=== PATIENT | female | born 1990 | race Caucasian/White ===

== ENCOUNTER 2020-03-19 17:26 | Outpatient (CLI) | payer BC, SELFPAY ==
--- NOTE | ~2020-03-19 | XR_ITS ---
EXAMINATION: XR chest 2V EXAM DATE: 03/19/2020 17:59 INDICATION: Fever of unknown origin. TECHNIQUE: Frontal and lateral projections of the chest obtained and reviewed. There is no prior bobby dy for comparison. FINDINGS: The lungs are clear. There are no pleural effusions. The cardiomediastinal silhouette is within normal limits. There is no pneumothorax suspected. The bones and soft tissues are unremarkab le. There is no significant interval change. IMPRESSION: Normal chest x-ray exam. Reviewed, dictated and finalized at location A. IMPRESSION: Normal chest x-ray exam.
== END 2020-03-19 17:27 | disposition home or self-care (01) ==
PROVIDERS: PCP Physician Assistant; Visit Provider Physician Assistant
DX: R50.9 Fever, unspecified (principal)
CPT/HCPCS: 71046

== ENCOUNTER 2020-03-20 16:44 | Outpatient (CLI) | payer BC, SELFPAY ==
[2020-03-24 14:31] LABS: EBV Nuclear Ab Interpretation Past; EBV Virus Capsid Ag IgG Ab >750.00 U/mL (<18.00); EBV Virus Capsid Ag IgM Ab <36.00 U/mL (<36.00)
== END 2020-03-20 16:45 | disposition home or self-care (01) ==
PROVIDERS: PCP Physician Assistant; Visit Provider Physician Assistant
DX: R50.9 Fever, unspecified (principal)
CPT/HCPCS: 36415; 86664; 86665

== ENCOUNTER 2020-03-25 16:35 | Outpatient (CLI) | payer BC, SELFPAY ==
[2020-03-25 17:45] LABS: Basophils Percent Auto 0.3 % (0.2-1.2); Eosinophils Absolute Auto 0.4 K/mm3 (0-0.3); Eosinophils Percent Auto 4.8 % (0-4.4); Hematocrit 45.3 % (37.0-47.0); Hemoglobin 15.5 g/dL (12.0-15.0); Immature Granulocyte Absolute 0.03 K/mm3 (0.00-0.031); Immature Granulocyte Percent A 0.3 % (0-0.5); Lymphocytes Absolute Auto 2.71 K/mm3 (0.9-3.2); Lymphocytes Percent Auto 29.3 % (18.3-44.2); Mean Corpuscular HGB Conc 34.2 g/dl (32-36); Mean Corpuscular Hemoglobin 31.5 pg (26-34); Mean Corpuscular Volume 92.1 fl (80-100); Mean Platelet Volume 11.9 fl (7.4-10.4); Monocytes Absolute Auto 0.8 K/mm3 (0.1-0.6); Monocytes Percent Auto 8.9 % (2.6-8.5); Neutrophils Absolute Auto 5.2 K/mm3 (1.3-6.7); Neutrophils Percent Auto 56.4 % (45.5-73.1); Platelet Count Result 214 k/mm3 (150-375); Red Blood Count 4.92 M/mm3 (4.2-5.4); Red Cell Distribution Width 11.6 % (11.5-14.5); White Blood Count 9.2 K/mm3 (4.5-10.0)
[2020-03-25 17:49] LABS: Add Urine Microscopic? YES; Appearance Urine Cloudy (Clear); Bacteria Urine 1+ /hpf; Bilirubin Urine Negative (Negative); Blood Urine Negative (Negative); Color Urine Yellow (Yellow); Glucose Urine UA Negative (Negative); Ketones Urine Negative (Negative); Leukocyte Esterase Ur 2+ LEU/UL (Negative); Mucus Urine Few /lpf; Nitrate Urine Negative (Negative); Protein Urine Negative (Negative); Specific Grav Ur 1.026 (1.001-1.035); Squamous Epithelial Cell Urine Many /hpf (Few); Urobilinogen Urine Negative mg/dL (<2.0)
[2020-03-25 17:57] LABS: Alanine Aminotransferase 86 U/L (4-35); Albumin Level 4.4 g/dL (3.5-5.1); Alkaline Phosphatase 94 U/L (38-126); Anion Gap 10 mmol/L (8-16); Aspartate Amino Transferase 53 U/L (14-36); Bilirubin,Total 0.5 mg/dL (0.2-1.3); Blood Urea Nitrogen 10 mg/dL (7-17); Calcium 9.8 mg/dL (8.4-10.2); Carbon Dioxide 24 mmol/L (22-30); Chloride 106 mmol/L (98-107); Estimated Glomerular Filt Rate > 60; Glucose 86 mg/dL (65-105); Potassium 3.7 mmol/L (3.4-5.0); Sodium 140 mmol/L (137-145)
[2020-03-25 18:19] LABS: Erythrocyte Sedimentation Rate 14 mm/hr (0-20)
[2020-03-28 15:40] LABS: CMV IgG Antibody <0.60 U/mL (<0.60)
[2020-03-30 19:39] LABS: CMV IgM Antibody <30.00 AU/mL (<30.00)
== END 2020-03-25 16:36 | disposition home or self-care (01) ==
LOC: ANHLAB 16:36
PROVIDERS: PCP Physician Assistant; Visit Provider Physician Assistant
DX: R50.9 Fever, unspecified (principal)
CPT/HCPCS: 36415; 80053; 81001; 85025; 85652; 86038; 86039; 86644; 86645; 86769; 87040

== ENCOUNTER 2021-11-14 01:30 | Day surgery (SDC) | payer BC, SELFPAY ==
[2021-10-27 14:27] VITALS: BMI 38.7
--- NOTE | 2021-11-13 14:25 | PM.HPGS ---
History of Present Illness History of Present Illness Consent: Risks, benefits, and alternatives have been discussed and questions answered. Patient agrees to proceed with procedure. Chief complaint: dysphagia Narrative: Karolyn Hayes Geri is a 31 year old female referred because of difficulty with swallowing. Review of Systems Review of Systems: All systems reviewed & are unremarkable except as noted in HPI and below [facility] Social History Social History Smoking status: Never smoker Alcohol intake: never Substance use: current Substance use type: marijuana Other substance usage details: daily marijuana use Living arrangements: with family Spiritual care concerns: No Meds Home Medications and Allergies Home Medications Medication Instructions Recorded Confirmed Type famotidine 20 mg tablet 20 mg PO BID 10/27/21 10/27/21 History fluoxetine 10 mg capsule 10 mg PO DAILY 10/27/21 10/27/21 History levothyroxine 88 mcg tablet 88 mcg PO DAILY 10/27/21 10/27/21 History lurasidone 60 mg tablet (Latuda) 60 mg PO DAILY 10/27/21 10/27/21 History lorazepam 1 mg tablet (Ativan) 1 mg PO DAILY PRN Anxiety 11/14/21 11/14/21 History Allergies Allergy/AdvReac Type Severity Reaction Status Date / Time No Known Allergies Allergy Verified 11/14/21 11:11 Exam Const: General: alert Orientation/consciousness: patient oriented x3 Resp: Auscultation: clear to auscultation bilaterally Cardio: Rhythm: regular rhythm GI: GI Palp: Yes Soft to palpation and No Tenderness to palpation present (GI) Neuro: General: patient oriented x3 Assessment and Plan Assessment and plan (1) Dysphagia: Code(s): R13.10 - Dysphagia, unspecified Status: Acute Assessment and Plan: EGD with possible biopsy or dilatation or cautery.
[2021-11-14] MEDS: LACTATED RINGERS 1,000 ML 150 ML IV CONT (11:21)
[2021-11-14 11:22] VITALS: BP 112/50; PULSE 73; RESP 73; TEMP 37; O2SAT 100; BMI 39.0
--- NOTE | 2021-11-14 11:44 | P.PNAN_ITS ---
Anes - Initial Pre Proc Eval Procedure: Operation Date: 11/14/21 12:30 Proposed Procedures p Esophagogastroduodenoscopy - Jose Luis Montelongo MD Date/Time: 11/14/21 11:44 Surgeon: Jose Luis Montelongo MD Pre Op Diagnosis: dysphagia Patient Data Age: 31 Gender: F Height: 1.78 m Weight: 123.4 kg Last Vital Signs Temp 98.6 F 11/14/21 11:22 Pulse 73 11/14/21 11:22 Resp 73 H 11/14/21 11:22 BP 112/50 L 11/14/21 11:22 Pulse Ox 100 11/14/21 11:22 O2 Del Method Room Air 11/14/21 11:22 Allergies Allergy/AdvReac Type Severity Reaction Status Date / Time No Known Allergies Allergy Verified 11/14/21 11:11 Home Medications Medication Instructions Recorded Confirmed Type famotidine 20 mg tablet 20 mg PO BID 10/27/21 10/27/21 History fluoxetine 10 mg capsule 10 mg PO DAILY 10/27/21 10/27/21 History levothyroxine 88 mcg tablet 88 mcg PO DAILY 10/27/21 10/27/21 History lurasidone 60 mg tablet (Latuda) 60 mg PO DAILY 10/27/21 10/27/21 History lorazepam 1 mg tablet (Ativan) 1 mg PO DAILY PRN Anxiety 11/14/21 11/14/21 History Patient hx anesthesia problems: none Family hx anesthesia problems: none Results Review: All pre-operative results and documents have been reviewed as part of the pre- operative evaluation. [facility] Social History Social History Smoking status: Never smoker Alcohol intake: never Substance use: current Substance use type: marijuana Other substance usage details: daily marijuana use Living arrangements: with family Spiritual care concerns: No Anes - Eval Final PreProcedure Day of Procedure 11/14/21 11:44 Patient weight: morbidly obese Heart: regular rate and rhythm Lungs: clear to auscultation Airway: Mallampati scale class II Neurological: alert and oriented Last oral intake: >/= 8 hours ASA classification: III Emergent: no Anesthetic plan: proceed Anesthesia type and monitoring: general GIVS and standard monitoring Results Review: All pre-operative results and documents have been reviewed as part of the pre- operative evaluation. Informed Consent: The patient's anesthetic plan and its attendant risks and benefits were discussed with the patient/family/POA. Questions were solicited and answers provided to the satisfaction of the patient/family/POA.
[2021-11-14 12:34] VITALS: BP 144/91; PULSE 71; RESP 16; O2SAT 100
[2021-11-14 12:44] VITALS: BP 137/94; PULSE 71; RESP 13; O2SAT 100
[2021-11-14 12:54] VITALS: BP 130/99; PULSE 66; RESP 15; O2SAT 99
== END 2021-11-14 13:10 | disposition home or self-care (01) ==
PROVIDERS: PCP Physician Assistant; Visit Provider Internal Medicine Gastroenterology
PROC: 0DJ08ZZ Inspection of Upper Intestinal Tract, Via Natural or Artificial Opening Endoscopic (ICD-10-PCS; CPT 43235; principal; 2021-11-14 12:30)
DX: K22.2 Esophageal obstruction (principal); K21.9 Gastro-esophageal reflux disease without esophagitis; K44.9 Diaphragmatic hernia without obstruction or gangrene; E66.01 Morbid (severe) obesity due to excess calories; Z68.39 Body mass index [BMI] 39.0-39.9, adult; F12.90 Cannabis use, unspecified, uncomplicated
CPT/HCPCS: 43249; 88305; C1726; J2001; J2704; J7120

== ENCOUNTER 2022-05-27 19:23 | Emergency (ER) | payer BC, SELFPAY ==
[2022-05-27 19:28] VITALS: BP 144/74; PULSE 94; RESP 16; TEMP 37.1; O2SAT 99
--- NOTE | 2022-05-27 19:32 | ED.URI ---
HPI - URI/Sore Throat General Chief Complaint: Upper Respiratory Infection Stated Complaint: uri Time Seen by Provider: 05/27/22 19:32 Source: patient Mode of arrival: ambulatory Limitations: no limitations History of Present Illness HPI Narrative: Karolyn is a 31-year-old female patient presenting to the clinic today with a 1 day history of vomiting and fever. She reports her temperature was a 102? degrees F today. Took some Tylenol 45 minutes ago and now her temperature is 37.1? C she reports that she contacted her surgeon as she has recently had IVF (harvesting egg) surgery six days ago and they recommend she be evaluated to check for a bladder infection. She is also requesting COVID and influenza testing in the clinic today. states the IVF harvesting is where they took a needle through her vagina into her cervix and harvest the eggs from the cervix. Patient reports that she has should be starting her menses tomorrow. MD elicited complaint: fever, nasal congestion and other ( Vomiting) Related Data Home Medications Medication Instructions Recorded Confirmed famotidine 20 mg tablet 20 mg PO BID 10/27/21 10/27/21 fluoxetine 10 mg capsule 10 mg PO DAILY 10/27/21 10/27/21 levothyroxine 88 mcg tablet 88 mcg PO DAILY 10/27/21 10/27/21 lurasidone 60 mg tablet (Latuda) 60 mg PO DAILY 10/27/21 10/27/21 lorazepam 1 mg tablet (Ativan) 1 mg PO DAILY PRN Anxiety 11/14/21 11/14/21 Allergies Allergy/AdvReac Type Severity Reaction Status Date / Time No Known Allergies Allergy Verified 11/14/21 11:11 Review of Systems Review of Systems: Pertinent positives per HPI. Patient denies any rash, headache, visual changes, dizziness, cough, shortness of breath, chest pain, palpitations, diarrhea, constipation, abdominal pain, or any urinary issues. [facility] Social History Social History Smoking status: Never smoker Alcohol intake: never Substance use: current Substance use type: marijuana Other substance usage details: daily marijuana use Spiritual care concerns: No Comments At the time of my signature, I reviewed and agree with the nursing past medical, surgical, social, and family history. There is no relevant family history pertinent to the patient complaint. Exam Narrative: General: Well-developed, morbidly obese, in no apparent distress Head: Normocephalic, atraumatic Eyes: Pupils equally round and reactive to light bilaterally, EOM intact, sclera and conjunctive clear, no discharge, lids normal Ears: TMs intact and clear, ear canals clear, no drainage, grossly hearing normal. Nose: Nares patent, clear nasal discharge, no inflammation, no sinus tenderness. Mouth: Oral pharynx without lesions or masses, good dentition, MMM. Neck: Supple, trachea midline, no enlargement of anterior or posterior cervical nodes, no thyroid masses or goiter palpable. Cardio: Regular rate and rhythm, s1 and s2 normal, no murmur appreciated. Resp: Clear to auscultation bilaterally, no rhonchi, rales, wheezing or rubs Abdomen: Soft, pliable, mild tenderness palpation to the lower abdomen, bowel sounds present all 4 quadrants, no CVAT tenderness Course Course Emergency Course: Portions of this record may have been created with voice recognition software. Level of Care: Express Care Visit Vital Signs Vital signs: Vital Signs Temperature 37.1 C 05/27/22 19:28 Pulse Rate 94 05/27/22 19:28 Respiratory Rate 16 05/27/22 19:28 Blood Pressure 144/74 H 05/27/22 19:28 Pulse Oximetry 99 05/27/22 19:28 Oxygen Delivery Room Air 05/27/22 19:28 Temperature 37.1 C 05/27/22 19:28 Pulse Rate 94 05/27/22 19:28 Respiratory Rate 16 05/27/22 19:28 Blood Pressure 144/74 H 05/27/22 19:28 Pulse Oximetry 99 05/27/22 19:28 Oxygen Delivery Room Air 05/27/22 19:28 Vital signs reviewed MDM - URI/Sore Throat MDM Narrative Medical decision making n
== END 2022-05-27 20:00 | disposition home or self-care (01) ==
PROVIDERS: Emergency Provider Nurse Practitioner Family; PCP Physician Assistant
DX: E86.0 Dehydration (principal); R10.31 Right lower quadrant pain; R10.32 Left lower quadrant pain; R11.2 Nausea with vomiting, unspecified; Z20.822 Contact with and (suspected) exposure to COVID-19; F12.90 Cannabis use, unspecified, uncomplicated
CPT/HCPCS: 81003; 87086; 87426; 87804; 99213; C9803; G0463